=== PATIENT | female | born 1985 | race Two or more races ===

== ENCOUNTER 2023-04-04 15:16 | Emergency (ER) | payer MEDICAID ==
[~2023-04-04] VITALS: Ht 162.6 cm; Wt 69.5 kg
[2023-04-04 16:26] LABS: Basophils # (auto) 0 10 ^3/uL (0-0.2); Basophils % (auto) 0.1 % (0.0-2.0); Eosinophils # (auto) 0.1 10 ^3/uL (0-0.8); Hematocrit 37.6 % (36.0-46.0); Hemoglobin 12.5 g/dL (12.2-16.2); Lymphocytes # (auto) 1.8 10 ^3/uL (0.4-5.4); Mean Corpuscular Hemoglobin 30.2 pg (28.0-32.0); Mean Corpuscular Hgb Conc. 33.4 g/dL (32.0-36.0); Mean Corpuscular Volume 90.4 fL (80.0-100.0); Monocytes # (auto) 0.8 10 ^3/uL (0-1.3); Monocytes % (auto) 6.6 % (0.0-12.0); Neutrophils # (auto) 8.7 10 ^3/uL (1.6-8.6); Neutrophils % (auto) 76.3 % (37.0-80.0); Nucleated Red Blood Cells % 0.1 %; Red Blood Cells 4.15 10^6/uL (4.0-5.20); Red Cell Distribution Width 13.2 % (11.8-14.3); White Blood Cell 11.4 10^3/uL (4.4-10.8)
[2023-04-04 16:43] LABS: Albumin 3.4 g/dL (3.4-5.0); Calcium 8.7 mg/dL (8.5-10.1); Potassium 3.6 mmol/L (3.5-5.1)
[2023-04-04 16:47] LABS: BUN/Creatinine Ratio 9.8 (10.0-20.0); Bilirubin, Total 0.8 mg/dL (0.2-1.0); Total Protein 7.8 g/dL (6.4-8.2)
[2023-04-04] MEDS ORDERED: CEFD300C2 PO (17:37)
[2023-04-04] MEDS ORDERED: DICL50TA2 PO (17:37)
[2023-04-04 18:05] VITALS: BP 121/74
== END 2023-04-04 18:07 | disposition home or self-care (01) ==
LOC: ER 15:16
DX: N63.10 Unspecified lump in the right breast, unspecified quadrant (principal); R10.2 Pelvic and perineal pain; Z90.49 Acquired absence of other specified parts of digestive tract; Z79.899 Other long term (current) drug therapy
CPT/HCPCS: 36415; 76642; 80053; 84702; 85025

== ENCOUNTER 2024-01-28 22:00 | Emergency (ER) | payer MEDICAID ==
[~2024-01-28] VITALS: Ht 162.6 cm; Wt 68.3 kg
[~2024-01-28 22:00] MED LIST: CEFD300C2 PO; DICL50TA2 PO
[2024-01-29] MEDS ORDERED: BACDST PO (00:41)
[2024-01-29] MEDS ORDERED: CEPH250C PO (00:41)
[2024-01-29] MEDS ORDERED: DICL50TA2 PO (00:41)
[2024-01-29] MEDS: cefTRIAXone SOD 1,000 MG VL IM ONE (00:41)
[2024-01-29] MEDS: HYDROcodone-ACET 10/325MG TAB PO ONE (00:46)
[2024-01-29] MEDS: IBUPROFEN 600 MG TAB PO ONE (00:46)
[2024-01-29] MEDS: SULFAMETHOX W/TRIMETH(800/160MG) DS TAB PO ONE (00:46)
[2024-01-29 00:48] VITALS: BP 126/66; PULSE 72; RESP 17; TEMP 98.2; O2SAT 98
[2024-01-29] MEDS: ONDANSETRON HCL 4 MG/2 ML VIAL IV ONE (00:48)
== END 2024-01-29 00:56 | disposition home or self-care (01) ==
LOC: ER 22:00
DX: N63.10 Unspecified lump in the right breast, unspecified quadrant (principal); Z98.890 Other specified postprocedural states; Z79.899 Other long term (current) drug therapy